=== PATIENT | male | born 1945 | race American Indian/Alaskan Native ===

== ENCOUNTER 2017-11-08 17:08 | Emergency (ER) | payer MEDICARE ==
[2017-11-08] MEDS ORDERED: LASIX PO ONE (20:48)
--- NOTE | 2017-11-08 20:54 | Emergency Department Report ---
HPI - General Chief Complaint: Extremity Injury, Lower Time Seen by Provider: 11/08/17 20:45 - HPI HPI: patient is here for leg swelling, that has been going on for months. he has not seen pcp for 4 months according to family member and ran out of medications. no fever, mild redness. has h/o peripheral edema. ED Past Medical Hx - Past Medical History Previous Medical History?: No Hx Hypertension: Yes Hx Diabetes: Yes (diet-controlled) Hx Psychiatric Treatment: Yes (paranoid schizophrenia) - Surgical History Additional Surgical History: hernia - Social History Smoking Status: Never Smoker Substance Use Type: None - Medications Home Medications: Home Medications Medication Instructions Recorded Confirmed Last Taken Type Clindamycin HCl 150 mg PO Q8HR #30 capsule 11/08/17 Unknown Rx Furosemide [Lasix TAB] 40 mg PO ONCE #60 tablet 11/08/17 Unknown Rx ED Review of Systems ROS: Stated complaint: LEFT LEG PAIN Other details as noted in HPI Comment: All other systems reviewed and negative Constitutional: no symptoms reported Musculoskeletal: joint swelling Skin: rash Physical Exam - Physical Exam Vital Signs: Vital Signs 11/08/17 17:13 Temperature 98.3 F Pulse Rate 70 Respiratory 18 Rate Blood Pressure 143/67 O2 Sat by Pulse 98 Oximetry Physical Exam: GENERAL: Alert, well developed, in no acute distress. MENTAL STATUS: Judgment and insight appropriate for age. Oriented to time, place and person. No recent loss of memory. Affect appropriate for age. EYES: Pupils are equal and reactive to light. No hemorrhages or exudates. Extraocular muscles intact. EAR, NOSE AND THROAT: Oropharynx clean, mucous membranes moist. Ears and nose without masses, lesions or deformities. Tympanic membranes clear bilaterally. Trachea midline. No lymph node swelling or tenderness. RESPIRATORY: Clear to auscultation and percussion. No wheezing, rales or rhonchi. CARDIOVASCULAR: Heart sounds normal. No thrills. Regular rate and rhythm, no murmurs, rubs or gallops. GASTROINTESTINAL: Abdomen soft, nondistended. No pulsatile mass, no flank tenderness or suprapubic tenderness. No hepatosplenomegaly. NEUROLOGIC: Cranial nerves II-XII grossly intact. No focal neurological deficits. Deep tendon reflexes +2 bilaterally. Babinski negative. Moves all extremities spontaneously. Sensation intact bilaterally. SKIN: No rashes or lesions. No petechia. No purpura. Good turgor. lower ext edema and redness bilat. MUSCULOSKELETAL: No cyanosis or clubbing. No gross deformities. Capable of free range of motion without pain or crepitation. No laxity, instability or dislocation. BONE: No misalignment, asymmetry, defect, tenderness or effusion. Capable of from of joint above and below bone. MUSCLE: No crepitation, defect, tenderness, masses or swellings. No loss of muscle tone or strength. LYMPHATIC: 4 plus bilateral lower ext edema ED Course Vital Signs 11/08/17 17:13 Temperature 98.3 F Pulse Rate 70 Respiratory 18 Rate Blood Pressure 143/67 O2 Sat by Pulse 98 Oximetry - Reevaluation(s) Reevaluation #1: 11/08/17 20:54 patient stable Critical care attestation.: If time is entered above; I have spent that time in minutes in the direct care of this critically ill patient, excluding procedure time. ED Disposition Clinical Impression: Peripheral edema, Cellulitis of left lower extremity, Cellulitis of right lower extremity Disposition: DC-01 TO HOME OR SELFCARE Is pt being admited?: No Does the pt Need Aspirin: No Condition: Stable Instructions: Leg Edema (ED), Cellulitis (ED) Prescriptions: Clindamycin HCl 150 mg PO Q8HR #30 capsule Furosemide [Lasix TAB] 40 mg PO ONCE #60 tablet Referrals: ADALBERTO ZAFAR MD [Primary Care Provider] - 3-5 Days
[2017-11-08 21:20] VITALS: BP 145/68
== END 2017-11-08 21:39 | disposition home or self-care (01) ==
LOC: ED 17:08
DX: L03.116 Cellulitis of left lower limb (principal); L03.115 Cellulitis of right lower limb; R60.1 Generalized edema; I10 Essential (primary) hypertension; E11.9 Type 2 diabetes mellitus without complications; F20.0 Paranoid schizophrenia
CPT/HCPCS: 99282